=== PATIENT | male | born 2000 | race Two or more races ===

== ENCOUNTER 2021-11-18 07:05 | Outpatient (CLI) | payer OTHER | END 2021-11-18 23:00 | disposition home or self-care (01) | LOC: LAB 07:05 | PROVIDERS: ATTEND Obstetrics & Gynecology | DX: Z20.828 Contact with and (suspected) exposure to other viral communicable diseases (principal); Z20.818 Contact with and (suspected) exposure to other bacterial communicable diseases ==

== ENCOUNTER 2024-03-11 12:14 | Emergency (ER) | payer OTHER ==
[~2024-03-11] VITALS: Ht 165.1 cm; Wt 77.1 kg
[2024-03-11] MEDS ORDERED: KETOROLAC TROMETHAMINE 60 MG VIAL IM ONE (17:15)
[2024-03-11] MEDS ORDERED: DICLOFENAC SODI50 MG PO (18:13)
== END 2024-03-11 18:43 | disposition home or self-care (01) ==
LOC: ER 12:16
DX: S80.01XA Contusion of right knee, initial encounter (principal); S90.01XA Contusion of right ankle, initial encounter; X58.XXXA Exposure to other specified factors, initial encounter; Y93.66 Activity, soccer; Y92.89 Other specified places as the place of occurrence of the external cause; Y99.9 Unspecified external cause status